=== PATIENT | female | born 2000 | race Two or more races ===

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

== ENCOUNTER → 2021-05-20 12:54 | Outpatient (BNVA) | payer OTHER, SELFPAY | PROVIDERS: PCP Internal Medicine; Visit Provider Nurse Practitioner Family | DX: Z20.822 Contact with and (suspected) exposure to COVID-19 (principal) | CPT/HCPCS: 87635 ==

== ENCOUNTER → 2025-04-05 13:09 | Outpatient (BNVA) | payer MEDICAID, SELFPAY | PROVIDERS: PCP Internal Medicine; Visit Provider Nurse Practitioner Women's Health | DX: N92.6 Irregular menstruation, unspecified (principal) | CPT/HCPCS: 81025 ==

== ENCOUNTER → 2025-04-06 10:10 | Outpatient (BNVA) | payer MEDICAID, SELFPAY | PROVIDERS: PCP Internal Medicine; Visit Provider Nurse Practitioner Women's Health | DX: Z34.91 Encounter for supervision of normal pregnancy, unspecified, first trimester (principal) | CPT/HCPCS: 76801 ==

== ENCOUNTER → 2025-04-19 15:38 | Outpatient (BNVA) | payer MEDICAID, SELFPAY | PROVIDERS: PCP Internal Medicine; Visit Provider Nurse Practitioner Women's Health | DX: Z34.90 Encounter for supervision of normal pregnancy, unspecified, unspecified trimester (principal) | CPT/HCPCS: 80307; 84315; 87086 ==

== ENCOUNTER → 2025-05-10 10:17 | Outpatient (BNVA) | payer SELFPAY | PROVIDERS: PCP Internal Medicine; Visit Provider Nurse Practitioner Women's Health | DX: Z34.01 Encounter for supervision of normal first pregnancy, first trimester (principal) | CPT/HCPCS: 84315 ==

== ENCOUNTER → 2025-06-07 09:47 | Outpatient (BNVA) | payer MEDICAID, SELFPAY | PROVIDERS: PCP Internal Medicine; Visit Provider Obstetrics & Gynecology | DX: Z36.9 Encounter for antenatal screening, unspecified (principal) | CPT/HCPCS: 76805 ==

== ENCOUNTER → 2025-06-14 10:26 | Outpatient (BNVA) | payer MEDICAID, SELFPAY | PROVIDERS: PCP Internal Medicine; Visit Provider Obstetrics & Gynecology | DX: Z34.90 Encounter for supervision of normal pregnancy, unspecified, unspecified trimester (principal) | CPT/HCPCS: 84315 ==

== ENCOUNTER → 2025-07-05 10:49 | Outpatient (BNVA) | payer BC, MEDICAID, SELFPAY | PROVIDERS: PCP Internal Medicine; Visit Provider Obstetrics & Gynecology | DX: Z34.90 Encounter for supervision of normal pregnancy, unspecified, unspecified trimester (principal) | CPT/HCPCS: 84315 ==

== ENCOUNTER → 2025-07-31 12:30 | Outpatient (BNVA) | payer BC, MEDICAID, SELFPAY | PROVIDERS: PCP Internal Medicine; Visit Provider Obstetrics & Gynecology | DX: Z34.90 Encounter for supervision of normal pregnancy, unspecified, unspecified trimester (principal); Z34.02 Encounter for supervision of normal first pregnancy, second trimester | CPT/HCPCS: 82950; 84315; 85025 ==

== ENCOUNTER → 2025-08-14 10:16 | Outpatient (BNVA) | payer BC, MEDICAID, SELFPAY | PROVIDERS: PCP Internal Medicine; Visit Provider Obstetrics & Gynecology | DX: Z34.02 Encounter for supervision of normal first pregnancy, second trimester (principal) | CPT/HCPCS: 84315 ==

== ENCOUNTER → 2025-08-28 11:23 | Outpatient (BNVA) | payer BC, MEDICAID, SELFPAY | PROVIDERS: PCP Internal Medicine; Visit Provider Obstetrics & Gynecology | DX: Z3A.32 32 weeks gestation of pregnancy (principal) | CPT/HCPCS: 84315 ==

== ENCOUNTER → 2025-09-14 10:14 | Outpatient (BNVA) | payer BC, MEDICAID, SELFPAY | PROVIDERS: PCP Internal Medicine; Visit Provider Nurse Practitioner Women's Health | DX: Z34.90 Encounter for supervision of normal pregnancy, unspecified, unspecified trimester (principal) | CPT/HCPCS: 84315; 85025 ==

== ENCOUNTER → 2025-09-27 08:05 | Outpatient (BNVA) | payer BC, MEDICAID, SELFPAY | PROVIDERS: PCP Internal Medicine; Visit Provider Obstetrics & Gynecology | DX: Z34.03 Encounter for supervision of normal first pregnancy, third trimester (principal) | CPT/HCPCS: 84315; 87081 ==

== ENCOUNTER → 2025-10-03 10:20 | Outpatient (BNVA) | payer BC, MEDICAID, SELFPAY | PROVIDERS: PCP Internal Medicine; Visit Provider Nurse Practitioner Women's Health | DX: Z34.03 Encounter for supervision of normal first pregnancy, third trimester (principal) | CPT/HCPCS: 84315 ==

== ENCOUNTER → 2025-10-09 10:54 | Outpatient (BNVA) | payer BC, MEDICAID, SELFPAY | PROVIDERS: PCP Internal Medicine; Visit Provider Obstetrics & Gynecology | DX: Z34.03 Encounter for supervision of normal first pregnancy, third trimester (principal); Z3A.38 38 weeks gestation of pregnancy; F12.90 Cannabis use, unspecified, uncomplicated; F17.210 Nicotine dependence, cigarettes, uncomplicated | CPT/HCPCS: 84315 ==

== ENCOUNTER → 2025-10-18 11:15 | Outpatient (BNVA) | payer BC, MEDICAID, SELFPAY | PROVIDERS: PCP Internal Medicine; Visit Provider Obstetrics & Gynecology | DX: Z34.03 Encounter for supervision of normal first pregnancy, third trimester (principal) | CPT/HCPCS: 84315 ==

== ENCOUNTER → 2025-10-23 10:16 | Outpatient (BNVA) | payer BC, MEDICAID, SELFPAY | PROVIDERS: PCP Internal Medicine; Visit Provider Obstetrics & Gynecology | DX: Z34.03 Encounter for supervision of normal first pregnancy, third trimester (principal) | CPT/HCPCS: 84315 ==

== ENCOUNTER 2025-10-29 04:10 | Outpatient (CLI) | payer BC, MEDICAID, SELFPAY ==
[2025-10-29] VITALS (9 sets, daily range): BP systolic 97–121; BP diastolic 50–67; PULSE 61–89; RESP 15; TEMP 36.7; O2SAT 99; BMI 26.6
== END 2025-10-29 06:27 | disposition home or self-care (01) ==
LOC: OPOB 04:21 → OBGYN 04:25
PROVIDERS: PCP Internal Medicine; Visit Provider Obstetrics & Gynecology
DX: O26.899 Other specified pregnancy related conditions, unspecified trimester (principal); Z3A.00 Weeks of gestation of pregnancy not specified; R10.9 Unspecified abdominal pain
CPT/HCPCS: 59025; 99211

== ENCOUNTER 2025-10-30 08:38 | Inpatient (IN) | payer BC, MEDICAID, SELFPAY ==
[2025-10-29] VITALS (11 sets, daily range): BP systolic 103–128; BP diastolic 58–75; PULSE 70–93; RESP 18; TEMP 36.1; BMI 26.4
[2025-10-29 16:46] LABS: Glucose Urine UA Negative (Normal); Nitrate Urine Negative (Negative); Specific Gravity, Urine 1.016 (1.005-1.030)
[2025-10-29 20:15] LABS: Hematocrit 37.1 % (36-47); Hemoglobin 12.80 g/dL (11.27-16.99); Mean Corpuscular HGB Conc 34.5 g/dL (30-55); Mean Corpuscular Hemoglobin 33.8 pg (27-33); Mean Corpuscular Volume 97.9 fl (85-98); Nucleated Red Blood Cells % 0 %; Platelet Count 296 10^3/cmm (157-399); Red Blood Count 3.79 10^6/uL (3.85-5.65); White Blood Count 18.22 10^3/uL (3.29-11.43)
[2025-10-29] MEDS: fentaNYL 50 mcg/mL INJ 2mL IVP ×2 (21:19→23:21)
[2025-10-30] VITALS (66 sets, daily range): BP systolic 101–136; BP diastolic 51–98; PULSE 72–151; RESP 15–18; TEMP 36.4–37.4; O2SAT 90–100
[2025-10-30] MEDS: fentaNYL 50 mcg/mL INJ 2mL IVP (01:11)
[2025-10-30] MEDS: oxytocin 30 UNIT/500 ML BAG IV (02:44)
[2025-10-30] MEDS: ROPivacaine premix 200 MG/100 ML PREMIX 13 MG EPIDURAL ×2 (03:39→10:18)
--- NOTE | 2025-10-30 03:43 | P.ANESASSM_ITS ---
Pre-Anesthetic Assessment Height/Weight: Height 1.75 m Weight 81.193 kg Temp Pulse Resp BP Pulse Ox 97.0 F L 122 H 18 125/67 97 10/29/25 20:04 10/30/25 03:38 10/30/25 01:11 10/30/25 03:38 10/30/25 03:36 Epidural Familial anesthetic complications: None Was Beta Ama taken within 24 hours: N/A Was Clonidine taken within 24 hours: N/A Last intake: 2100 solids Social Tobacco (Nicotine and marijuana) and No alcohol Exam alert, oriented x 3, clear to auscultation bilaterally and regular rate & rhythm Airway Submandibular: within normal limits Cervical ROM: within normal limits Mallampati: Class II Dentition: full (Nose piercing) History/ROS No significant history except as noted and No significant complaints Pulmonary Cough CV/HEM Anemia None reported Hepatic None reported GI None reported Metabolic None reported Musc/skel None reported Neuropsych Anxiety and Depression Anesthetic Plan ASA status: 2 Anesthesia: Anesthesia Evaluation, General and Regional (specify below) (Spinal/epidural) Risk of > 500 ml blood loss (7ml/kg in children): Yes, adequate IV access and fluids planned Medications/Allergies Home Medications ?Medication ?Instructions ?Recorded ?Confirmed ?Last Taken ?Type with Folic Acid, Iron 1 tab PO DAILY 09/14/25 10/29/25 10/29/25 06:00 History ferrous sulfate 325 mg (65 mg 325 mg PO DAILY 10/29/25 10/29/25 10/29/25 06:00 History iron) tablet Allergies Allergy/AdvReac Type Severity Reaction Status Date / Time venom-wasp Allergy Severe ALGY-Anaphy Verified 10/23/25 09:39 laxis kiwi Allergy Mild ALGY-Rash Verified 10/23/25 09:39 calamine Allergy ALGY-Rash Verified 10/23/25 09:39 Current Medications Generic Name Dose Route Start Last Admin Trade Name Freq PRN Reason Stop Dose Admin Fentanyl 25 - 100 mcg 10/29/25 21:02 10/30/25 01:11 Fentanyl 50 Mcg/Ml Inj 2ml IVP 75 mcg Q1H PRN Administration SEVERE PAIN Dextrose/Lactated Ringer's 1,000 mls @ 125 mls/hr 10/29/25 18:45 10/30/25 03:22 Dextrose 5%-Lactated Ringers IV 125 mls/hr .Q8H SON Administration Oxytocin 30 unit in 500 mls @ 1 mls/hr 10/30/25 02:15 10/30/25 03:06 Pitocin IV 3 milliunit/min .Q24H SON 3 mls/hr Protocol Titration 1 MILLIUNIT/MIN Ropivacaine 200 mg in 100 mls @ 10 mls/hr 10/30/25 02:15 10/30/25 03:39 Naropin Premix EPIDURAL 10 mls/hr .Q10H SON Administration Sodium Chloride 1,000 mls @ 999 mls/hr 10/30/25 02:09 10/30/25 02:15 Sodium Chloride 0.9% IV 999 mls/hr .Q1H1M PRN Administration See label comments PFSH Anesthesia Medical History (Updated 10/23/25 @ 11:32 by Trevor Ryan MD) 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 No pertinent past medical history neghx: htn, dm, thyroid, dvt/pe PCP: Subhash Surgical History No pertinent past surgical history Family History Grandmother Breast cancer, Onset Age: 40 MGM-- uncertain of hormone receptive Uterine cancer Ovarian cancer Grandfather Heart disease Mother Diabetes diet controlled Stroke Uterine cancer Denies family history of Colon cancer Prostate cancer Hyperlipidemia Hypertension Thyroid disease Social History Smoking and tobacco/nicotine status: current every day tobacco/nicotine user (marijuana) Alcohol intake: never Substance/Drug Use: never Female Reproductive History : 1 Data Anesthesia 10/29/25 19:53 Short CBC 10/29/25 Range/Units 19:53 WBC 18.22 H (3.29-11.43) 10^3/uL Hgb 12.80 (11.27-16.99) g/dL Hct 37.1 (36-47) % MCV 97.9 (85-98) fl Plt Count 296 (157-399) 10^3/cmm Neut % (Auto) 83.6 % Neut # (Auto) 15.22 H (1.8-7.7) 10^3/uL Urine 10/29/25 Range/Units 16:30 Urine Color Yellow (Yellow) Urine Appearance Turbid A (CLEAR) Urine pH 8.5 A (5-7) Ur Specific [place] 1.016 (1.005-1.030) Urine Protein Trace A (Negative) Urine Glucose (UA) Negative (Normal) Urine Ketones Negative (Negative) Urine Nitrate Negative (Negative) Urine Bilirubin Negative (Negative) Ur Leukocyte Esterase 1+ A (Negative) Urine RBC 0-2 (0-2) /hpf Urine WBC 11-20 H (0-5) /hpf Blood Bank 10/29/25 19:53 Blood Type O Positive Rho(D) Type Rh positive Antibody Screen Negative
--- NOTE | 2025-10-30 03:45 | P.ANES_ITS ---
Anesthesia Procedures Procedure/Date: 10/30/25 Epidural: Time Out Performed: Yes Consents Signed: Procedure Consent and NPO Consent Consent: requested by attending/covering physician, from patient, risks and benefits reviewed and patient agrees to proceed Lumbar Level: L2-L3 Epidural position: sitting Epidural procedure: sterile prep of area (betadine), 1% lidocaine to numb the area (3 mLs), neg for paresthesia, test dose given, 1.5% xylocaine 1:200k epi (3 mLs/ 2 mLs), placed PCEA, no systemic response, sterile dressing applied, L.U.D. no apparent complications and 0.2% Ropiavacaine @ mls/hr (13) Additional Comments: RENE 4cm, catheter threaded to 11cm. Negative aspiration for blood and csf. P atient tolerated well. 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 Patient verbalized understanding.
[2025-10-30] MEDS: penicillin g potassium 5,000,000 UNIT in sodium chloride 0.9% (plus) 100 ML 100 UNIT IV (07:18)
--- NOTE | 2025-10-30 07:18 | P.HP_ITS ---
Providers/Chief Complaint 2 Primary Care Provider: Juana Conti MD Chief Complaint: CONTRACTIONS EVERY 3 MINUTES History of Present Illness Ms. Garcia is a 25 year old G1 established patient with LMP of 01/16/2025, CLAUDIO 10/23/2025 based on LMP and consistent with 11 week sonogram, placing her at 41- 0/7 weeks today.?GBS positive. Medications/Allergies Home Medications ?Medication ?Instructions ?Recorded ?Confirmed ?Last Taken ?Type with Folic Acid, Iron 1 tab PO DAILY 09/14/25 10/29/25 10/29/25 06:00 History ferrous sulfate 325 mg (65 mg 325 mg PO DAILY 10/29/25 10/29/25 10/29/25 06:00 History iron) tablet Allergies Allergy/AdvReac Type Severity Reaction Status Date / Time venom-wasp Allergy Severe ALGY-Anaphy Verified 10/23/25 09:39 laxis kiwi Allergy Mild ALGY-Rash Verified 10/23/25 09:39 calamine Allergy ALGY-Rash Verified 10/23/25 09:39 PFSH Acute 2 PFSH: Medical History (Updated 10/23/25 @ 11:32 by Trevor Ryan MD) 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 No pertinent past medical history neghx: htn, dm, thyroid, dvt/pe PCP: Subhash Surgical History No pertinent past surgical history Family History Grandmother Breast cancer, Onset Age: 40 MGM-- uncertain of hormone receptive Uterine cancer Ovarian cancer Grandfather Heart disease Mother Diabetes diet controlled Stroke Uterine cancer Denies family history of Colon cancer Prostate cancer Hyperlipidemia Hypertension Thyroid disease Social History Smoking and tobacco/nicotine status: current every day tobacco/nicotine user (marijuana) Alcohol intake: never Substance/Drug Use: never Female Reproductive History: : 1 Vitals/I&O/Wt Last Vital Signs Temp 97.5 F L 10/30/25 06:48 Pulse 110 H 10/30/25 06:48 Resp 18 10/30/25 01:11 BP 118/65 10/30/25 06:48 Pulse Ox 94 10/30/25 04:28 10/29/25 10/30/25 10/30/25 22:59 06:59 14:59 Intake Total 14.067 / 14.067 Balance 14.067 / 14.067 Weight last 48 hrs Weight 179 lb Weight 179 lb Physical Exam 2 Urinary Catheter Management: Reveles Latex Free: Cath Placed During This Visit: yes Reason for Continuing Indwelling Catheter: Required Immobilization for Trauma or Surgery or Anesthesia Urinary Catheter Date of Insertion: 10/30/25 Urinary Catheter Time of Insertion: 04:56 Data 10/29/25 19:53 A&P PDMP PDMP Reviewed: Not Reviewed Coding Level of Care Code Acute Code for Chg Fwd
--- NOTE | 2025-10-30 08:03 | PM.OBGYHP ---
Providers/Chief Complaint Primary Care Provider: Juana Conti MD Chief Complaint: CONTRACTIONS EVERY 3 MINUTES HPI [facility] History of Present Illness Jeanette Garcia is a 25 year old female G1@ 41 weeks admitted last night after her second triage visit in 24 hours for contractions. GBS+. Present Details : 1 Review of Systems Narrative: OB: movement: [+] Const: Denies: fever(s) or chills Card: Denies: chest pain, palpitations or syncope Resp: Denies: dyspnea, + cough, chronic GI: Denies: abdominal pain, nausea or vomiting : Denies: flank pain, dysuria or urinary frequency Musc: Denies: back pain or extremity swelling Skin/Breast: Denies: rash, pruritus or breast pain Neuro: Denies: headache(s) or dizziness Psych: Denies: anxiety, depression or mood swings Endo: Denies: polyuria, tired all the time, cold intolerance or heat intolerance Jose/Lymph: Denies: easy bruising or easy bleeding All/Imm: Denies: urticaria Medications/Allergies Home Medications ?Medication ?Instructions ?Recorded ?Confirmed ?Last Taken ?Type with Folic Acid, Iron 1 tab PO DAILY 09/14/25 10/29/25 10/29/25 06:00 History ferrous sulfate 325 mg (65 mg 325 mg PO DAILY 10/29/25 10/29/25 10/29/25 06:00 History iron) tablet Allergies Allergy/AdvReac Type Severity Reaction Status Date / Time venom-wasp Allergy Severe ALGY-Anaphy Verified 10/23/25 09:39 laxis kiwi Allergy Mild ALGY-Rash Verified 10/23/25 09:39 calamine Allergy ALGY-Rash Verified 10/23/25 09:39 PFSH [facility] PFSH: Medical History (Updated 10/30/25 @ 08:07 by Antoinette Kim MD) Uterine contractions during 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 No pertinent past medical history neghx: htn, dm, thyroid, dvt/pe PCP: Subhash Surgical History No pertinent past surgical history Family History Grandmother Breast cancer, Onset Age: 40 MGM-- uncertain of hormone receptive Uterine cancer Ovarian cancer Grandfather Heart disease Mother Diabetes diet controlled Stroke Uterine cancer Denies family history of Colon cancer Prostate cancer Hyperlipidemia Hypertension Thyroid disease Social History Smoking and tobacco/nicotine status: current every day tobacco/nicotine user (marijuana) Alcohol intake: never Substance/Drug Use: never History History History 1 Term Miscarriages/Ectopic Living Children Care CLAUDIO Calculator Estimated Delivery Date Method Current WG Current Estimate 10/23/25 LMP (Certain) 41w 0d Other Estimates 10/25/25 Ultrasound #1 40w 5d Specific Issues/Plans GBS-- negative PCN allergy Nicotine Use Marijuana use Galactosemia-- dx as a child; FOB needs testing Vitals/I&O/Wt Last Vital Signs Temp 97.5 F L 10/30/25 06:48 Pulse 100 10/30/25 07:48 Resp 18 10/30/25 01:11 BP 113/66 10/30/25 07:48 Pulse Ox 94 10/30/25 04:28 10/29/25 10/30/25 10/30/25 22:59 06:59 14:59 Intake Total 14.067 / 14.067 Balance 14.067 / 14.067 Weight last 48 hrs Weight 179 lb Weight 179 lb Physical Exam Narrative: Appearance: grossly normal Attitude: calm and engaged, appropriate eye contact Const: no acute distress, oriented x3 cooperative Chest: Symmetrical chest wall rise Resp: normal respiratory effort, clear to auscultation bilaterally Cardio: regular rate and regular rhythm GI: Soft to palpation, gravid, Non Tender, no Guarding : No Uterine tenderness, cvx 5/90/0, vertex, sac was already ruptured Extremity: normal inspection, trace pedal edema Neuro: oriented x3 and moves all extremities, speech normal Psych: mental status grossly normal, and Normal thought process present Skin: no rashes or lesions noted Urinary Catheter Management: Reveles Latex Free: Cath Placed During This Visit: yes Reason for Continuing Indwelling Catheter: Required Immobilization for Trauma or Surgery or Anesthesia Urinary Catheter Date of Insertion: 10/30/25 Urinary Catheter Time of Insertion: 04:56 Data 10/29/25 19:53 Results Labs OB ([facility]): Blood Type O Positive 10/29/25 Antibody Screen Negative 10/29/25 Hct, (36-47) 37.1 % 10/29/25 Hgb, (11.27-16.99) 12.80 g/dL 10/29/25 Rho(D) Type Rh positive 10/29/25 Plt Count, (157-399) 296 10^3/cmm 10/29/25 Glucose 1 Hr 50 gm, (85-140) 119 mg/dL 07/31/25 Urine Opiates Screen, (Negative) Negative ng/mL 04/19/25 Ur Barbiturates Screen, (Negative) Negative ng/mL 04/19/25 Ur Phencyclidine Scrn, (Negative) Negative ng/mL 04/19/25 Ur Amphetamines Screen, (Negative) Negative ng/mL 04/19/25 U Benzodiazepines Scrn, (Negative) Negative ng/mL 04/19/25 Urine Cocaine Screen, (Negative) Negative ng/mL 04/19/25 U Marijuana (THC) Screen, (Negative) Positive ng/mL H 04/19/25 Micro Urine Specimen 10/29/25 A&P Assessment and plan 1. Uterine contractions during : Admitted for latent labor. Observe, epidural PRN, start pitocin and antibiotics around 0200 if not progressing. 2. GBS (group B Streptococcus carrier), +RV culture, currently : 3. 41 weeks gestation of : 4. Use of nicotine during : PDMP PDMP Reviewed: Not Reviewed Attestations Medical Necessity Statement*: NA Coding Level of Care Code Acute Code for Chg Fwd Diagnoses Uterine contractions during O47.9 GBS (group B Streptococcus carrier), +RV culture, currently O99.820 41 weeks gestation of O48.0; Z3A.41 Use of nicotine during O99.330
--- NOTE | 2025-10-30 11:35 | PM.DELIVERY ---
Delivery Note: Date of delivery: October 30, 2025 Procedure: Op report anesthesia: Epidural Delivering Physician: Connor Estimated blood loss (mL): 200 Findings: BG, Normal , approx 7 lbs History History History 1 Term Miscarriages/Ectopic Living Children A&P Assessment and plan 1. (normal spontaneous vaginal delivery): 2. 41 weeks gestation of : 3. GBS (group B Streptococcus carrier), +RV culture, currently : 4. Use of nicotine during : Plan: Delivery Note Patient Information: - 25yo 1, Para 0 , GBS pos - Gestational Age: 41 weeks - Delivery Date/Time: 11:30am, 10/30/2025 Labor Course: Labor was augmented with intravenous oxytocin, titrated to a maximum of 6 milliunits per minute. GBS prophylaxis provided. Delivery: - Mode of Delivery: Normal spontaneous vaginal delivery () - Position: Right occiput anterior (DINAH) - Infant Sex: Female - Scores: normal Third Stage: - Placenta: Delivered spontaneously and intact - Placental Examination: Complete, no missing cotyledons or membranes - Estimated Blood Loss: 200 mL Perineal Assessment: - Lacerations: None - Episiotomy: None performed Management: - Oxytocin administered immediately - Uterine Tone: Firm, well-contracted - Vaginal Bleeding: Minimal, within normal limits Maternal Condition: Stable . Vital signs within normal limits. Patient tolerated procedure well. Status: Female infant delivered with normal scores. Plan: - Routine care - Monitor for bleeding and uterine tone - support as desired - follow-up as recommended PDMP PDMP Reviewed: Not Reviewed Coding Level of Care Code Acute Code for Chg Fwd Diagnoses GBS (group B Streptococcus carrier), +RV culture, currently O99.820 (normal spontaneous vaginal delivery) O80 41 weeks gestation of O48.0; Z3A.41 Use of nicotine during O99.330
[2025-10-31 05:10] VITALS: BP 122/60; PULSE 82; RESP 16; TEMP 36.4; O2SAT 98
[2025-10-31 05:29] LABS: Hematocrit 34.4 % (36-47); Hemoglobin 11.80 g/dL (11.27-16.99); Mean Corpuscular HGB Conc 34.3 g/dL (30-55); Mean Corpuscular Hemoglobin 33.6 pg (27-33); Mean Corpuscular Volume 98.0 fl (85-98); Platelet Count 239 10^3/cmm (157-399); Red Blood Count 3.51 10^6/uL (3.85-5.65); White Blood Count 17.48 10^3/uL (3.29-11.43)
--- NOTE | 2025-10-31 08:07 | P.OP_ITS ---
Operative Report Date of procedure: October 31, 2025 Pre-op diagnosis: IUP @ 39 wks, prior cs, undesired fertility Post-op diagnosis: same Procedure done: RLTCS + Bilateral salpingectomy Specimens removed/disposition: placenta Surgeon: Antoinette Kim MD Estimated blood loss: 600 cc Complications: none Findings: vtx viable female, clear fluid uterus adnexa wnl Procedure: Procedure Details: The risks, benefits, complications, treatment options, and expected outcomes were discussed with the patient.? The patient concurred with the proposed plan, giving informed consent.? The site of surgery properly noted. The patient was taken to the Operating Room , identified as [] and the procedure verified as Delivery with bilateral salpingectomy. A Time Out was held and the above information confirmed. After induction of anesthesia, the patient was draped and prepped in the usual sterile manner. A Pfannenstiel incision was made and carried down through the subcutaneous tissue to the fascia. Fascial incision was made and extended transversely. The fascia was from the underlying rectus tissue superiorly and inferiorly. The peritoneum was identified and entered. Peritoneal incision was extended longitudinally. The vesicouterine peritoneum was identified and a low transverse uterine incision was made superior to this landmark. The baby was delivered from vertex position. After the umbilical cord was clamped and cut cord blood was obtained for evaluation. The placenta was removed intact and appeared normal. The uterine outline, tubes and ovaries appeared normal. The uterine incision was closed with running locked sutures of 1-0 chromic. An o' leary stitch secured uterine artery on her left side. Hemostasis was observed. Each fallopian tube was then dissected and removed with Ligasure. Hemostasis observed all 3 sites. The gabriela toneum was closed with chromic and the fascia was then reapproximated with running sutures of 0 Vicryl. The skin was reapproximated with Insorb.. Instrument, sponge, and needle counts were correct prior the abdominal closure and at the conclusion of the case.
--- NOTE | 2025-10-31 08:16 | P.PN_ITS ---
Subjective 2 Subjective: PPD#1 Eating, walking, voiding. Lochia wnl. Vitals/I&O/Wt Last Vital Signs Temp 97.5 F L 10/31/25 05:10 Pulse 82 10/31/25 05:10 Resp 16 10/31/25 05:10 BP 122/60 10/31/25 05:10 Pulse Ox 98 10/31/25 05:10 O2 Del Method Room Air 10/31/25 05:10 Weight last 48 hrs Weight 179 lb Weight 179 lb Physical Exam 2 Narrative: Appearance: grossly normal Attitude: calm and engaged, appropriate eye contact Const: no acute distress, oriented x3 cooperative Chest: Symmetrical chest wall rise Resp: normal respiratory effort, clear to auscultation bilaterally Cardio: regular rate and regular rhythm GI: Soft to palpation, fundus firm, Non Tender, no Guarding Extremity: normal inspection, negative for no pedal edema Neuro: oriented x3 and moves all extremities, speech normal Psych: mental status grossly normal, and Normal thought process present Skin: no rashes or lesions noted Urinary Catheter Management: Reveles Latex Free: Cath Placed During This Visit: yes Reason for Continuing Indwelling Catheter: Required Immobilization for Trauma or Surgery or Anesthesia Urinary Catheter Date of Insertion: 10/30/25 Urinary Catheter Time of Insertion: 04:56 Data 10/31/25 05:14 Micro: Microbiology 10/29/25 16:30 Urine Culture - Preliminary Urine,Clean Catch A&P Assessment and plan 1. (normal spontaneous vaginal delivery): Routine pp care DC planning. DC tomorrow, due to GBS+ for baby. + BF 2. GBS (group B Streptococcus carrier), +RV culture, currently : PDMP PDMP Reviewed: Not Reviewed Attestations 2 Medical Necessity Statement*: NA Coding Level of Care Code Acute Code for Chg Fwd Diagnoses (normal spontaneous vaginal delivery) O80 GBS (group B Streptococcus carrier), +RV culture, currently O99.820
[2025-10-31 10:50] VITALS: BP 106/56; PULSE 80; RESP 16; TEMP 36.5; O2SAT 96
[2025-10-31 16:45] VITALS: BP 103/54; PULSE 85; RESP 16; TEMP 36.6; O2SAT 99
[2025-10-31 22:00] VITALS: BP 111/74; PULSE 86; RESP 16; TEMP 36.5; O2SAT 97
[2025-11-01 04:30] VITALS: BP 103/64; PULSE 67; RESP 14; TEMP 36.8; O2SAT 97
[2025-11-01] MEDS: PRENATAL VIT NO.130/IRON/FOLIC 1 EACH TABLET PO (04:34)
[2025-11-01 10:00] VITALS: BP 106/69; PULSE 65; RESP 16; TEMP 36.7
--- NOTE | 2025-11-01 13:05 | P.DS_ITS ---
Discharge Providers GAME MANAGER Date of Admission: 10/30/25 08:38 Date of Discharge: 11/01/25 Attending Provider at Admission: Antoinette Kim MD Attending Provider at Discharge: Connor Ernst MD Primary Care Provider: Juana Conti MD Diagnoses at Discharge Discharge Diagnosis 1. (normal spontaneous vaginal delivery): 2. GBS (group B Streptococcus carrier), +RV culture, currently : Reason for Visit Reason for Visit: CONTRACTIONS EVERY 3 MINUTES Hospital Course Hospital Course DISCHARGE SUMMARY Delivery:?Normal Spontaneous Vaginal Delivery Course: Patient tolerated recovery well without complications. Patient is ambulating independently and voiding spontaneously without difficulty. Oral intake is adequate with regular diet tolerated. Lochia is normal in appearance and amount. Patient denies any complaints. Vital Signs at Discharge: * Blood pressure: 106/69 mmHg * Pulse: 65 bpm * Temperature: 98.1?F Johnson Status: Baby is doing well and without complications. Pediatric clearance obtained for discharge. Discharge Instructions: Pain Management: * Take ibuprofen 600 mg by mouth every 6 hours as needed for mild to moderate pain * May supplement with acetaminophen 650 mg by mouth every 6 hours if additional pain relief needed * Pain is expected to resolve within 1-2 weeks for most women Activity: * Pelvic rest for 6 weeks (no intercourse, tampons, or douching) * Gradually increase activity as tolerated * Avoid heavy lifting : * Continue on demand * Contact provider or fundraising consultant with any concerns Follow-Up Care: * Office visit scheduled in 1-2 weeks * Comprehensive visit to be scheduled within 12 weeks Warning Signs - Call or Return Immediately if You Experience: * Heavy vaginal bleeding (soaking more than one pad per hour) * Fever of 100.4?F (38?C) or higher * Severe abdominal or pelvic pain * Foul-smelling vaginal discharge * Painful, red, or swollen area in the breast * Pain, swelling, redness, or warmth in the leg * Chest pain or difficulty breathing * Severe headache or vision changes * Thoughts of harming yourself or your baby * Severe sadness, anxiety, or feelings of hopelessness General Care: * Maintain good perineal hygiene * Get adequate rest when baby sleeps * Stay well-hydrated and maintain nutritious diet * Watch for signs of depression Discharge Disposition: Mother and baby discharged home together in stable condition. Information Peripartum Data: Infant Delivery Method: Vaginal Physical Exam Urinary Catheter Management: Reveles Latex Free: Cath Placed During This Visit: yes Reason for Continuing Indwelling Catheter: Required Immobilization for Trauma or Surgery or Anesthesia Urinary Catheter Date of Insertion: 10/30/25 Urinary Catheter Time of Insertion: 04:56 History History History 1 Term Miscarriages/Ectopic Living Children Discharge Data Studies Completed and Pending Laboratory Results WBC 17.48 10^3/uL (3.29-11.43) H 10/31/25 05:14 RBC 3.51 10^6/uL (3.85-5.65) L 10/31/25 05:14 Hgb 11.80 g/dL (11.27-16.99) 10/31/25 05:14 Hct 34.4 % (36-47) L 10/31/25 05:14 MCV 98.0 fl (85-98) 10/31/25 05:14 MCH 33.6 pg (27-33) H 10/31/25 05:14 MCHC 34.3 g/dL (30-55) 10/31/25 05:14 RDW 12.9 % (12.1-15.1) 10/31/25 05:14 Plt Count 239 10^3/cmm (157-399) 10/31/25 05:14 MPV 9.6 fL (7.4-10.4) 10/31/25 05:14 Neut % (Auto) 83.6 % 10/29/25 19:53 Lymph % (Auto) 8.6 % 10/29/25 19:53 Haakon % (Auto) 7.1 % 10/29/25 19:53 Eos % (Auto) 0.1 % 10/29/25 19:53 Baso % (Auto) 0.2 % 10/29/25 19:53 Neut # (Auto) 15.22 10^3/uL (1.8-7.7) H 10/29/25 19:53 Lymph # (Auto) 1.6 10^3/uL (0.8-4.8) 10/29/25 19:53 Haakon # (Auto) 1.3 10^3/uL (0.2-0.9) H 10/29/25 19:53 Eos # (Auto) 0.0 10^3/uL (0.0-0.8) 10/29/25 19:53 Baso # (Auto) 0.0 10^3/uL (0.0-0.1) 10/29/25 19:53 Nucleated RBC % (auto) 0 % 10/29/25 19:53 Nucleated RBCs # 0.0 /100WBC 10/29/25 19:53 Urine Color Yellow (Yellow) 10/29/25 16:30 Urine Appearance Turbid (CLEAR) A 10/29/25 16:30 Urine pH 8.5 (5-7) A 10/29/25 16:30 Ur Specific [place] 1.016 (1.005-1.030) 10/29/25 16:30 Urine Protein Trace (Negative) A 10/29/25 16:30 Urine Glucose (UA) Negative (Normal) 10/29/25 16:30 Urine Ketones Negative (Negative) 10/29/25 16:30 Urine Blood 1+ (Negative) A 10/29/25 16:30 Urine Nitrate Negative (Negative) 10/29/25 16:30 Urine Bilirubin Negative (Negative) 10/29/25 16:30 Urine Urobilinogen 0.2 mg/dL (Negative) 10/29/25 16:30 Ur Leukocyte Esterase 1+ (Negative) A 10/29/25 16:30 Urine RBC 0-2 /hpf (0-2) 10/29/25 16:30 Urine WBC 11-20 /hpf (0-5) H 10/29/25 16:30 Ur Squamous Epith Cells 0-5 /hpf (0-5) 10/29/25 16:30 Amorphous Sediment Not Reportable 10/29/25 16:30 Urine Bacteria Trace /hpf (NONE) 10/29/25 16:30 Hyaline Casts 0.40 /lpf 10/29/25 16:30 Blood Type O Positive 10/29/25 19:53 Rho(D) Type Rh positive 10/29/25 19:53 Antibody Screen Negative 10/29/25 19:53 Vitals Last Vital Signs Temp 98.1 F 11/01/25 10:00 Pulse 65 11/01/25 10:00 Resp 16 11/01/25 10:00 BP 106/69 11/01/25 10:00 Pulse Ox 97 11/01/25 04:30 O2 Del Method Room Air 11/01/25 04:30 Results Labs OB ([facility]): Blood Type O Positive 10/29/25 Antibody Screen Negative 10/29/25 Hct, (36-47) 34.4 % L 10/31/25 Hgb, (11.27-16.99) 11.80 g/dL 10/31/25 Rho(D) Type Rh positive 10/29/25 Plt Count, (157-399) 239 10^3/cmm 10/31/25 Glucose 1 Hr 50 gm, (85-140) 119 mg/dL 07/31/25 Urine Opiates Screen, (Negative) Negative ng/mL 5 Ur Barbiturates Screen, (Negative) Negative ng/mL 04/19 Ur Phencyclidine Scrn, (Negative) Negative ng/mL Ur Amphetamines Screen, (Negative) Negative ng/mL 04/19 U Benzodiazepines Scrn, (Negative) Negative ng/mL 04/19 Urine Cocaine Screen, (Negative) Negative ng/mL 5 U Marijuana (THC) Screen, (Negative) Positive ng/mL H 10/03 Micro Urine Specimen 10/29/25 Discharge Plan Discharge Patient Disposition: Home Condition: Stable Prescriptions: No Action with Folic Acid, Iron 1 tab PO DAILY ferrous sulfate 325 mg (65 mg iron) Tablet 325 mg PO DAILY Discharge Order = DC NOW: Discharge Order (Routine); Ordered 11/01/25 Ordered By: Trevor Ryan Referrals: Trevor Ryan MD [Physician, GAME MANAGER] - 12/11/25 1:30 pm Referral Note: Follow up appointment Patient Instructions: Depression (DC), Opioid Safety (DC), Preeclampsia and Eclampsia After Delivery (GEN), Hemorrhage (DC), OB Discharge Report, OB Food/Drug Interaction Guide, OB Care at Home, Abnormal Bleeding Discharge Attestations GAME MANAGER Time Spent in Discharge Care*: less than 30 min Coding Level of Care Code Acute Code for Chg Fwd Diagnoses (normal spontaneous vaginal delivery) O80 GBS (group B Streptococcus carrier), +RV culture, currently O99.820
[2025-11-01 14:06] VITALS: BP 127/77; PULSE 70; RESP 16; TEMP 36.8; O2SAT 98
== END 2025-11-01 14:07 | disposition home or self-care (01) | DRG 560 ==
LOC: OPOB 08:38 → OBGYN 08:38
PROVIDERS: Obstetrics & Gynecology; Absent Provider Obstetrics & Gynecology; Admitting Provider Obstetrics & Gynecology; PCP Internal Medicine; Visit Provider Obstetrics & Gynecology
DX: O48.0 Post-term pregnancy (principal); O99.824 Streptococcus B carrier state complicating childbirth; Z3A.40 40 weeks gestation of pregnancy; O99.324 Drug use complicating childbirth; F12.90 Cannabis use, unspecified, uncomplicated; O99.334 Smoking (tobacco) complicating childbirth; F17.200 Nicotine dependence, unspecified, uncomplicated; Z37.0 Single live birth
CPT/HCPCS: 36415; 51702; 59025; 59409; 81001; 85025; 85027; 86850; 86900; 87086; 99211; J2540; J2590; J2795; J3010; J7030; J7121; J9999